=== PATIENT | male | born 1980 | race African-American/Black ===

== ENCOUNTER 2024-03-14 10:46 | Emergency (ER) | payer OTHER, SELFPAY ==
[2024-03-14 11:03] VITALS: BP 126/87; PULSE 85; RESP 18; TEMP 36.7; O2SAT 100
[2024-03-14 11:04] VITALS: BP 126/87; PULSE 85; RESP 18; TEMP 36.7; O2SAT 100
--- NOTE | 2024-03-14 11:09 | ED.DENTAL ---
HPI - Dental/Oral General Chief complaint: Dental/Oral Stated complaint: abcess Time Seen by Provider: 03/14/24 11:09 Source: patient, RN notes reviewed and old records reviewed Mode of arrival: ambulatory Limitations: no limitations History of Present Illness HPI Narrative: 43-year-old male to [facility] for complaint of left upper dental pain and headache for 2 days. patient states that he called his dentist today for an appointment and was advised to be seen at [facility] to rule out/ treat infection. Patient endorses treating at home with ibuprofen with mild relief. Patient denies difficulty breathing, difficulty swallowing, swelling tongue, hoarseness, allergies, pertinent medical history. Patient able to tolerate fluids by mouth. Patient resting in exam room in no acute distress. Respirations even and nonlabored. Related Data Home Medications Medication Instructions Recorded Confirmed atorvastatin 40 mg tablet 40 mg DIRECTED 03/14/24 03/14/24 empagliflozin 10 mg tablet 10 mg DIRECTED 03/14/24 03/14/24 (Jardiance) metformin 500 mg tablet,extended 500 mg PO DIRECTED 03/14/24 03/14/24 release 24 hr semaglutide 0.25 mg or 0.5 mg (2 0.25 mg subcut DIRECTED 03/14/24 03/14/24 mg/3 mL) subcutaneous pen injector (Ozempic) sildenafil 100 mg tablet 100 mg DIRECTED 03/14/24 03/14/24 Allergies Allergy/AdvReac Type Severity Reaction Status Date / Time No Known Drug Allergies Allergy Verified 04/29/11 00:00 Review of Systems Review of Systems: All systems reviewed & are unremarkable except as noted in HPI and below Constitutional: Constitutional: Reports as per HPI and Reports headache(s) Eyes: Eyes: Reports no additional eye complaints ENT: Reports as per HPI and Reports dental pain ( Left upper) Cardiovascular: Cardiovascular: Reports no additional cardiovascular complaints, Denies chest pain and Denies dyspnea Respiratory: Respiratory: Reports no additional respiratory complaints, Denies cough and Denies dyspnea Musculoskeletal: Musculoskeletal: Reports no additional musculoskeletal complaints Neurologic: Reports system reviewed and no additional complaints, except as documented Psychiatric: Psychiatric: Reports no additional psychiatric complaints PMFSH Comments At the time of my signature, I reviewed and agree with the nursing past medical, surgical, social, and family history. There is no relevant family history pertinent to the patient complaint. Exam Const: General: cooperative, no acute distress, alert, tired appearing, uncomfortable and well nourished Nutritional Appearance: well nourished Orientation/consciousness: patient oriented x3 Limitations: no limitations HENMT: Head: normal to inspection Ears: external ears normal Face/Nose/Sinus: Normal external nose present, Normal nares present, normal facial exam, No erythema and No edema Face and sinus: normal facial exam, no erythema and no edema Mouth: Yes tongue normal, No drooling, No lip abnormal and No muffled voice Teeth and gingiva: abnormal tooth and associated gingiva upper left second molar tender, with associated gingival edema and dentin fractured, caries and gingiva abnormal hypertrophic, edematous, diffusely erythematous and tender Throat: posterior oropharynx normal Eyes: General: appearance normal, both eyes and all related structures Neck: Neck: normal visual inspection, full ROM and no meningeal signs Lymphatic: lymphadenopathy left anterior cervical Chest: Chest palpation & inspection: normal inspection of the chest Resp: Effort & Inspection: normal respiratory effort and able to speak in complete sentences Auscultation: clear to auscultation bilaterally Cardio: Jugular venous distension: no JVD Rate: regular rate Rhythm: regular rhythm Back/Spine/Pelvis: Cervical Spine: cervical ROM normal Skin: General skin exam: normal color, no rashes or lesions noted and turgor normal Neuro: General
[2024-03-14] MEDS: methylPREDNISolone ACETATE 80 MG/ML VIAL IM (11:21)
== END 2024-03-14 11:44 | disposition home or self-care (01) ==
PROVIDERS: Emergency Provider Nurse Practitioner Family
DX: K04.7 Periapical abscess without sinus (principal); K02.9 Dental caries, unspecified; S02.5XXA Fracture of tooth (traumatic), initial encounter for closed fracture; X58.XXXA Exposure to other specified factors, initial encounter; E78.00 Pure hypercholesterolemia, unspecified; E11.9 Type 2 diabetes mellitus without complications; Z79.84 Long term (current) use of oral hypoglycemic drugs
CPT/HCPCS: 96372; 99203; G0463; J1010